=== PATIENT | female | born 1945 | race American Indian/Alaskan Native ===

== ENCOUNTER 2022-02-04 17:39 | Inpatient (IN) | payer MEDICARE, OTHER ==
[~2022-02-04] VITALS: Ht 152.4 cm; Wt 66.8 kg
[2022-02-04 19:10] LABS: BASOPHILS # (AUTO) 0.1 X10'3 (0-0.2); BASOPHILS % (AUTO) 1.1 % (0-1); EOSINOPHILS # (AUTO) 0.1 X10'3 (0-0.9); EOSINOPHILS % (AUTO) 0.9 % (0-6); HEMATOCRIT 45.2 % (35.0-45.0); HEMOGLOBIN 15.1 g/dl (12.0-16.0); LYMPHOCYTES # (AUTO) 1.7 X10'3 (1.1-4.8); LYMPHOCYTES % (AUTO) 16.6 % (21-51); MEAN CORPUSCULAR HEMOGLOBIN 32.1 PG (27.0-31.0); MEAN CORPUSCULAR HGB CONC 33.3 g/dL (33.0-36.5); MEAN CORPUSCULAR VOLUME 96.3 FL (78-98); MEAN PLATELET VOLUME 6.9 FL (7.4-10.4); MONOCYTES # (AUTO) 0.7 X10'3 (0-0.9); MONOCYTES % (AUTO) 6.5 % (2-12); NEUTROPHILS # (AUTO) 7.7 X10'3 (1.8-7.7); NEUTROPHILS % (AUTO) 74.9 % (42-75); PLATELET COUNT 310 X10'3 (140-440); RED CELL DISTRIBUTION WIDTH 14.1 % (11.5-14.5); WHITE BLOOD COUNT 10.4 X10'3 (4.5-11.0)
[2022-02-04 19:19] LABS: ALANINE AMINOTRANSFERASE 12 U/L (12-78); ALBUMIN 3.6 G/DL (3.4-5.0); ALKALINE PHOSPHATASE 99 IU/L (46-116); ANION GAP 6 (8-16); ASPARTATE AMINO TRANSFERASE 25 U/L (10-37); BILIRUBIN,TOTAL 0.6 MG/DL (0.1-1.0); BLOOD UREA NITROGEN 10 MG/DL (7-18); BUN/CREATININE RATIO 11.4 (6.6-38.0); CALCIUM 8.8 MG/DL (8.5-10.1); CHLORIDE 104 MMOL/L (99-107); CREATININE 0.88 MG/DL (0.40-0.90); GLUCOSE 123 MG/DL (70-104); LIPASE 94 U/L (73-393); POTASSIUM 3.9 MMOL/L (3.5-5.1); SODIUM 138 MMOL/L (135-145); TOTAL CARBON DIOXIDE 27.7 MMOL/L (24-32); TOTAL PROTEIN 7.1 G/DL (6.4-8.2); eGFR 62 ML/MIN
[2022-02-05] VITALS (19 sets, daily range): BP systolic 137–181; BP diastolic 61–94
[2022-02-05] MEDS ORDERED: ondansetron/PF 4mg/2ml inj IV ONE (00:55)
[2022-02-05] MEDS ORDERED: acetaminophen 325mg tablet PO ONE (01:00)
[2022-02-05] MEDS ORDERED: iohexol 300mg/ml 100ml inj. ONE (01:15)
[2022-02-05] MEDS ORDERED: normal saline 1000ML IV soln IVB ONE (01:45)
[2022-02-05] MEDS ORDERED: morphine 4 MG/ML inj SYRINge IV ONE (02:45)
[2022-02-05] MEDS ORDERED: LIDOcaine Viscous 15ml cup MM ONE (02:55)
[2022-02-05] MEDS ORDERED: bisacodyl 10mg suppository rectal RC PRN (03:30)
[2022-02-05] MEDS ORDERED: morphine 2 MG/ML inj. syringe IV PRN ×2 (03:30→14:25)
[2022-02-05] MEDS ORDERED: magnesium hydroxide 30ml (MOM) UD suspension PO PRN (03:30)
[2022-02-05] MEDS ORDERED: ondansetron/PF 4mg/2ml inj IV PRN ×2 (03:30→14:25)
[2022-02-05] MEDS ORDERED: acetaminophen 650mg rectal suppository RC PRN (03:30)
[2022-02-05] MEDS ORDERED: diphenhydrAMINE 50 mg/ml inj IV PRN (03:30)
[2022-02-05] MEDS ORDERED: HYDROcodone/acetaminophen 10/325mg tab PO PRN (03:30)
[2022-02-05] MEDS ORDERED: HYDROmorphone inj. 0.5 MG/0.5 ML DISP.SYRIN IV PRN (03:30)
[2022-02-05] MEDS ORDERED: acetaminophen 325mg tablet PO PRN (03:30)
[2022-02-05] MEDS ORDERED: diphenhydrAMINE 25mg capsule PO PRN (03:30)
[2022-02-05] MEDS ORDERED: mag hydrox/Alum hydrox/simeth 30ml oral suspension PO PRN (03:30)
[2022-02-05] MEDS ORDERED: HYDROcodone/acetaminophen 5mg/325mg tablet PO PRN (03:30)
[2022-02-05] MEDS: niCARDipine-NS 40mg/200ml IVPB 200 ML IV SCH ×2 (03:50→04:32)
[2022-02-05] MEDS: dextrose 5%-1/2 normal saline 1,000 ML IV SCH ×2 (03:55→18:00)
--- NOTE | 2022-02-05 04:32 | NUR ---
PT PLACED ONTO IN PATIENT BED
[2022-02-05 04:34] LABS: CLARITY,URINE CLEAR (Clear); COLOR,URINE YELLOW (Yellow); GLUCOSE, URINE NEGATIVE (Neg); KETONES,URINE TRACE mg/dl (Neg); LEUKOCYTE ESTERASE ,URINE NEGATIVE (Neg); NITRITES, URINE NEGATIVE (Neg); OCCULT BLOOD,URINE NEGATIVE (Neg); PROTEIN,URINE NEGATIVE (Neg); UROBILINOGEN,URINE 0.2 E.U/dL (0.2-1.0)
[2022-02-05 04:50] LABS: UA COLLECTION TYPE CLN CATCH MIDSTREAM
--- NOTE | 2022-02-05 06:43 | NUR ---
report from bettie for continuation of care. pt resting in position of comfort with no complaints. ng tube noted with med. suction.
--- NOTE | 2022-02-05 06:49 | NUR ---
stopped jud palm. pt vs 104/58 Addendum: 02/05/22 at 0649 by GASPIRIN pt ao4 claims no dizziness or sob. resp even unlabored. skinw/d/i pink.
[2022-02-05] MEDS: docusate sod 100mg capsule PO SCH ×2 (08:00→20:00)
[2022-02-05] MEDS ORDERED: hydrALAZINE 20mg/ml inj. IV PRN ×2 (08:25→14:25)
[2022-02-05] MEDS: pantoprazole 40MG/NS 100ML BAG 100 ML IV SCH (09:02)
[2022-02-05] MEDS ORDERED: amLODIPine 5mg tablet PO ONE (09:18)
[2022-02-05] MEDS: chlorthalidone 25mg tablet PO SCH (09:20)
[2022-02-05 09:26] LABS: APTT 26 SECONDS (22-32)
[2022-02-05 09:32] LABS: CREATINE KINASE 28 U/L (26-192); MAGNESIUM 1.6 MG/DL (1.5-2.4); PHOSPHORUS 3.8 MG/DL (2.3-4.5)
[2022-02-05 10:42] LABS: CHOL/HDL RATIO 3.6 (0.00-4.99); CHOLESTEROL 188 MG/DL (0-200); HDL CHOLESTEROL 52 MG/DL (35-60); LDL CHOLESTEROL 127 MG/DL (50-100); TRIGLYCERIDES 85 MG/DL (20-135)
[2022-02-05] MEDS ORDERED: BUPIVAcaine 0.5% inj/PF 30 ML ONE (12:35)
--- NOTE | 2022-02-05 13:08 | NUR ---
pt taken to or by or staff. all belongings taken by family members. pt remains ao4 with no acute signs of distress
[2022-02-05] MEDS ORDERED: sevoflurane 250ml liquid IH ONE (13:55)
[2022-02-05] MEDS ORDERED: midazolam 1 mg/ML 2ml injection ONE (14:01)
[2022-02-05] MEDS ORDERED: fentaNYL /PF 50mcg/ml 5ml ampule ONE (14:04)
[2022-02-05] MEDS ORDERED: ondansetron/PF 4mg/2ml inj ONE (14:17)
[2022-02-05] MEDS ORDERED: rocuronium 10mg/ml inj IV ONE (14:17)
[2022-02-05] MEDS ORDERED: LIDOcaine 2% (20mg/ml) 5ml vial ONE (14:17)
[2022-02-05] MEDS ORDERED: dexamethasone sod phosphate 4mg/ml inj. ONE (14:17)
[2022-02-05] MEDS ORDERED: propofol inj 20 ML IV ONE (14:17)
[2022-02-05] MEDS ORDERED: ceFAZolin 1000mg inj ONE ×2 (14:17)
[2022-02-05] MEDS ORDERED: ePHEDrine 50MG/ML INJ. ONE (14:17)
[2022-02-05] MEDS ORDERED: proCHLORperazine 10 MG/2 ml inj IV PRN (14:25)
[2022-02-05] MEDS ORDERED: morphine 4 MG/ML inj SYRINge IV PRN (14:25)
[2022-02-05] MEDS ORDERED: meperidine/PF 25mg/ml syringe IV PRN ×3 (14:25)
[2022-02-05] MEDS ORDERED: ringers solution, lacted 1,000 ML IV SCH (14:25)
[2022-02-05] MEDS ORDERED: acetaminophen 1,000mg/100ml IV 100 ML IV PRN (14:25)
[2022-02-05] MEDS ORDERED: BUPIVAcaine 0.5% inj/PF 30 ml vial IJ ONE (14:42)
[2022-02-05] MEDS ORDERED: neostigmine methylsulfate 1 MG/ML 10ml vial ONE (15:25)
[2022-02-05] MEDS ORDERED: glycopyrrolate 0.2mg/ml inj ONE (15:25)
[2022-02-05] MEDS ORDERED: BUPIVACAINE liposomal/PF 13.3 MG/ML vial IM ONE (15:32)
[2022-02-05] MEDS ORDERED: sugammadex 200mg/2ml injection IV ONE (15:49)
--- NOTE | 2022-02-05 15:56 | NUR ---
Received from OR via BED IN STABLE CONDITION , accompanied by Anesthesiologist and AIR TRAFFIC CONTROL SUPERVISOR report given by AIR TRAFFIC CONTROL SUPERVISOR AND Anesthesiolgist. Addendum: 02/05/22 at 1617 by Nevaeh Brandon RN Amended: Links added.
[2022-02-05] MEDS: labetalol 20mg/4ml (5mg/ml) syringe IV PRN ×3 (16:30→17:05)
--- NOTE | 2022-02-05 17:30 | NUR ---
received report from ta bennett in recovery
--- NOTE | 2022-02-05 17:36 | NUR ---
PATIENT DISCHARGED FROM PACU IN STABLE CONDITION AFTER REPORT GIVEN TO RN. PATIENT TRANSFERRED VIA BED TO ROOM 347B WITH ELLIOT AND JOSUÉ. Addendum: 02/05/22 at 1746 by Nevaeh Brandon RN Amended: Links added.
--- NOTE | 2022-02-05 17:38 | NUR ---
pt arrived on floor
--- NOTE | 2022-02-05 17:50 | NUR ---
pt ng tube hooked up, post opt vitals machine taking vitals and pt is alert awake and talking with daughters at bedside at this time
--- NOTE | 2022-02-05 18:30 | NUR ---
Patient in room [facility]. I have received report from ELLIOT Oconnell and had the opportunity to ask questions and assume patient care.
--- NOTE | 2022-02-05 18:34 | NUR ---
gave report to ta covarrubias
[2022-02-05] MEDS ORDERED: temazepam 15mg capsule PO PRN (21:00)
[2022-02-05] MEDS: morphine 2 MG/ML inj. syringe IV PRN (22:58)
[2022-02-06] MEDS ORDERED: NAPR-56 PO (01:57)
[2022-02-06] MEDS ORDERED: LIDO700A32 TOP (01:57)
[2022-02-06] MEDS ORDERED: LISI20TA28 PO (01:57)
[2022-02-06 02:00] VITALS: BP 168/88
[2022-02-06] MEDS: dextrose 5%-1/2 normal saline 1,000 ML IV SCH ×3 (03:18→13:35)
[2022-02-06] MEDS: morphine 2 MG/ML inj. syringe IV PRN ×2 (03:27→11:28)
--- NOTE | 2022-02-06 06:21 | NUR ---
Problems reprioritized. Patient report given, questions answered & plan of care reviewed with ELLIOT Hardin.
[2022-02-06 06:23] LABS: BASOPHILS % (AUTO) 0.1 % (0-1); EOSINOPHILS % (AUTO) 0 % (0-6); HEMATOCRIT 39.1 % (35.0-45.0); HEMOGLOBIN 13.3 g/dl (12.0-16.0); LYMPHOCYTES # (AUTO) 0.6 X10'3 (1.1-4.8); LYMPHOCYTES % (AUTO) 4.7 % (21-51); MEAN CORPUSCULAR HEMOGLOBIN 32.7 PG (27.0-31.0); MEAN CORPUSCULAR VOLUME 96.3 FL (78-98); MEAN PLATELET VOLUME 7.1 FL (7.4-10.4); MONOCYTES # (AUTO) 0.7 X10'3 (0-0.9); NEUTROPHILS # (AUTO) 12.1 X10'3 (1.8-7.7); NEUTROPHILS % (AUTO) 90.2 % (42-75); PLATELET COUNT 226 X10'3 (140-440); RED BLOOD COUNT 4.06 X10'6 (4.20-5.60); RED CELL DISTRIBUTION WIDTH 13.8 % (11.5-14.5); WHITE BLOOD COUNT 13.5 X10'3 (4.5-11.0)
--- NOTE | 2022-02-06 06:49 | NUR ---
Patient in room [facility]. I have received report from ELLIOT Crain and had the opportunity to ask questions and assume patient care.
[2022-02-06 06:55] VITALS: BP 142/76
[2022-02-06] MEDS: pantoprazole 40MG/NS 100ML BAG 100 ML IV SCH (07:48)
[2022-02-06] MEDS: docusate sod 100mg capsule PO SCH (07:49)
[2022-02-06] MEDS: chlorthalidone 25mg tablet PO SCH (07:49)
[2022-02-06] MEDS: CefTRIAXone 2gm/D5W 50ml BAG 50 ML IV SCH (07:50)
[2022-02-06 09:38] LABS: ALANINE AMINOTRANSFERASE 17 U/L (12-78); ALBUMIN 2.5 G/DL (3.4-5.0); ALBUMIN/GLOBULIN RATIO 0.8 (1.1-1.5); ALKALINE PHOSPHATASE 70 IU/L (46-116); ANION GAP 13 (8-16); ASPARTATE AMINO TRANSFERASE 27 U/L (10-37); BILIRUBIN,TOTAL 0.9 MG/DL (0.1-1.0); BLOOD UREA NITROGEN 10 MG/DL (7-18); BUN/CREATININE RATIO 12.8 (6.6-38.0); CALCIUM 8.7 MG/DL (8.5-10.1); CHLORIDE 105 MMOL/L (99-107); CREATININE 0.78 MG/DL (0.40-0.90); GLUCOSE 150 MG/DL (70-104); POTASSIUM 4.2 MMOL/L (3.5-5.1); SODIUM 139 MMOL/L (135-145); TOTAL CARBON DIOXIDE 21.3 MMOL/L (24-32); TOTAL PROTEIN 5.7 G/DL (6.4-8.2); eGFR 72 ML/MIN
[2022-02-06 12:33] VITALS: BP_SYST 129; BP_SYST 173; BP_DIAS 55; BP_DIAS 75
[2022-02-06] MEDS ORDERED: LISI30TA4 PO (12:33)
[2022-02-06] MEDS ORDERED: OMEP20CA16 PO (12:33)
[2022-02-06] MEDS ORDERED: Chloraseptic (Phenol) Spray 177ml MM PRN (13:40)
--- NOTE | 2022-02-06 15:25 | NUR ---
PAGER ID: [phone] MESSAGE: [phone]- Karina Figueroa- pt on cont pulse ox on telemonitor. do you want to continue 24hr tele or dc ?- Lashawn [id number]
[2022-02-06 18:00] VITALS: BP 169/80
--- NOTE | 2022-02-06 18:02 | NUR ---
Problems reprioritized. Patient report given, questions answered & plan of care reviewed with ELLIOT Barron.
--- NOTE | 2022-02-06 18:21 | NUR ---
Patient in room [facility]. I have received report from Lashawn and had the opportunity to ask questions and assume patient care.
--- NOTE | 2022-02-06 20:42 | NUR ---
Patient's NG tube has been removed. Patient tolerated well. On clear liquids per MD.
[2022-02-06 22:00] VITALS: BP 172/67
[2022-02-07] MEDS: dextrose 5%-1/2 normal saline 1,000 ML IV SCH ×2 (01:36→15:30)
[2022-02-07 06:00] VITALS: BP 164/66
--- NOTE | 2022-02-07 06:05 | NUR ---
REVIEWED SENIOR CYBER INTELLIGENCE ANALYST ASSIGNMENTS AND IN AGREEMENT.
--- NOTE | 2022-02-07 06:21 | NUR ---
Problems reprioritized. Patient report given, questions answered & plan of care reviewed with
--- NOTE | 2022-02-07 06:25 | NUR ---
Patient in room [facility]. I have received report from Teresa RHODES and had the opportunity to ask questions and assume patient care.
[2022-02-07 07:17] LABS: BASOPHILS % (AUTO) 0.4 % (0-1); EOSINOPHILS # (AUTO) 0.1 X10'3 (0-0.9); EOSINOPHILS % (AUTO) 0.7 % (0-6); HEMATOCRIT 38.1 % (35.0-45.0); HEMOGLOBIN 12.9 g/dl (12.0-16.0); LYMPHOCYTES # (AUTO) 1.6 X10'3 (1.1-4.8); LYMPHOCYTES % (AUTO) 16.5 % (21-51); MEAN CORPUSCULAR HEMOGLOBIN 32.5 PG (27.0-31.0); MEAN CORPUSCULAR HGB CONC 33.8 g/dL (33.0-36.5); MEAN CORPUSCULAR VOLUME 96.3 FL (78-98); MEAN PLATELET VOLUME 7.2 FL (7.4-10.4); MONOCYTES # (AUTO) 0.8 X10'3 (0-0.9); MONOCYTES % (AUTO) 8.6 % (2-12); NEUTROPHILS # (AUTO) 7.2 X10'3 (1.8-7.7); NEUTROPHILS % (AUTO) 73.8 % (42-75); PLATELET COUNT 213 X10'3 (140-440); RED BLOOD COUNT 3.96 X10'6 (4.20-5.60); RED CELL DISTRIBUTION WIDTH 13.9 % (11.5-14.5); WHITE BLOOD COUNT 9.7 X10'3 (4.5-11.0)
[2022-02-07 07:35] LABS: ALANINE AMINOTRANSFERASE 21 U/L (12-78); ALBUMIN 2.4 G/DL (3.4-5.0); ALBUMIN/GLOBULIN RATIO 0.8 (1.1-1.5); ALKALINE PHOSPHATASE 70 IU/L (46-116); ANION GAP 7 (8-16); ASPARTATE AMINO TRANSFERASE 34 U/L (10-37); BILIRUBIN,TOTAL 0.8 MG/DL (0.1-1.0); BLOOD UREA NITROGEN 7 MG/DL (7-18); BUN/CREATININE RATIO 10.1 (6.6-38.0); CALCIUM 8.1 MG/DL (8.5-10.1); CHLORIDE 104 MMOL/L (99-107); CREATININE 0.69 MG/DL (0.40-0.90); GLUCOSE 116 MG/DL (70-104); POTASSIUM 3.8 MMOL/L (3.5-5.1); SODIUM 140 MMOL/L (135-145); TOTAL CARBON DIOXIDE 28.6 MMOL/L (24-32); TOTAL PROTEIN 5.4 G/DL (6.4-8.2); eGFR 82 ML/MIN
[2022-02-07] MEDS: pantoprazole 40MG/NS 100ML BAG 100 ML IV SCH (07:47)
[2022-02-07] MEDS: CefTRIAXone 2gm/D5W 50ml BAG 50 ML IV SCH (07:50)
[2022-02-07] MEDS: chlorthalidone 25mg tablet PO SCH (07:59)
[2022-02-07] MEDS: lisinopril 10 MG tablet PO SCH (07:59)
[2022-02-07] MEDS: LIDOcaine 5% patch TP SCH (07:59)
[2022-02-07] MEDS: pantoprazole 40mg Tablet.DR PO SCH (07:59)
[2022-02-07 10:00] VITALS: BP 173/72
--- NOTE | 2022-02-07 17:26 | NUR ---
COFFEE WEIGHER documentation: I have reviewed and agree with all interventions, assessments performed and documented by Vania Zacarias LVN.
[2022-02-07 18:00] VITALS: BP 166/67
--- NOTE | 2022-02-07 18:12 | NUR ---
Problems reprioritized. Patient report given, questions answered & plan of care reviewed with Teresa RHODES.
--- NOTE | 2022-02-07 18:20 | NUR ---
Patient in room [facility]. I have received report from Paula and had the opportunity to ask questions and assume patient care.
[2022-02-07 22:00] VITALS: BP 115/69
[2022-02-07] MEDS: acetaminophen 325mg tablet PO PRN (22:10)
[2022-02-08] MEDS: dextrose 5%-1/2 normal saline 1,000 ML IV SCH (01:30)
--- NOTE | 2022-02-08 04:17 | NUR ---
REVIEWED PAINT PROCESS ENGINEER ASSESSMENT AND IN AGREEMENT.
[2022-02-08 06:00] VITALS: BP 164/73
[2022-02-08 06:48] LABS: BASOPHILS % (AUTO) 0.7 % (0-1); EOSINOPHILS # (AUTO) 0.2 X10'3 (0-0.9); EOSINOPHILS % (AUTO) 2.1 % (0-6); HEMATOCRIT 37.9 % (35.0-45.0); HEMOGLOBIN 13.1 g/dl (12.0-16.0); LYMPHOCYTES # (AUTO) 1.6 X10'3 (1.1-4.8); LYMPHOCYTES % (AUTO) 21.9 % (21-51); MEAN CORPUSCULAR HEMOGLOBIN 32.8 PG (27.0-31.0); MEAN CORPUSCULAR HGB CONC 34.4 g/dL (33.0-36.5); MEAN CORPUSCULAR VOLUME 95.3 FL (78-98); MEAN PLATELET VOLUME 6.7 FL (7.4-10.4); MONOCYTES # (AUTO) 0.7 X10'3 (0-0.9); MONOCYTES % (AUTO) 9.7 % (2-12); NEUTROPHILS # (AUTO) 4.7 X10'3 (1.8-7.7); NEUTROPHILS % (AUTO) 65.6 % (42-75); PLATELET COUNT 222 X10'3 (140-440); RED BLOOD COUNT 3.98 X10'6 (4.20-5.60); RED CELL DISTRIBUTION WIDTH 13.4 % (11.5-14.5); WHITE BLOOD COUNT 7.2 X10'3 (4.5-11.0)
[2022-02-08 07:02] LABS: ALANINE AMINOTRANSFERASE 22 U/L (12-78); ALBUMIN 2.5 G/DL (3.4-5.0); ALBUMIN/GLOBULIN RATIO 0.8 (1.1-1.5); ALKALINE PHOSPHATASE 79 IU/L (46-116); ANION GAP 5 (8-16); ASPARTATE AMINO TRANSFERASE 26 U/L (10-37); BLOOD UREA NITROGEN 7 MG/DL (7-18); BUN/CREATININE RATIO 8.6 (6.6-38.0); CALCIUM 8.9 MG/DL (8.5-10.1); CHLORIDE 102 MMOL/L (99-107); CREATININE 0.81 MG/DL (0.40-0.90); GLUCOSE 108 MG/DL (70-104); POTASSIUM 3.9 MMOL/L (3.5-5.1); SODIUM 138 MMOL/L (135-145); TOTAL CARBON DIOXIDE 30.7 MMOL/L (24-32); TOTAL PROTEIN 5.8 G/DL (6.4-8.2); eGFR 69 ML/MIN
[2022-02-08] MEDS: pantoprazole 40MG/NS 100ML BAG 100 ML IV SCH (07:08)
[2022-02-08] MEDS: chlorthalidone 25mg tablet PO SCH (07:13)
[2022-02-08] MEDS: CefTRIAXone 2gm/D5W 50ml BAG 50 ML IV SCH (07:13)
[2022-02-08] MEDS: lisinopril 10 MG tablet PO SCH (07:14)
[2022-02-08] MEDS: pantoprazole 40mg Tablet.DR PO SCH (07:14)
[2022-02-08] MEDS: LIDOcaine 5% patch TP SCH (07:19)
[2022-02-08 10:00] VITALS: BP 178/80
[2022-02-08 18:00] VITALS: BP 177/83
--- NOTE | 2022-02-08 18:24 | NUR ---
Problems reprioritized. Patient report given, questions answered & plan of care reviewed with ELLIOT Gerardo.
--- NOTE | 2022-02-08 18:40 | NUR ---
Patient in room [facility]. I have received report from Cristal ZARATE and had the opportunity to ask questions and assume patient care.
[2022-02-08 19:50] VITALS: BP 150/78
[2022-02-08 22:00] VITALS: BP 154/72
[2022-02-08] MEDS: acetaminophen 325mg tablet PO PRN (23:17)
[2022-02-09 06:00] VITALS: BP 151/64
--- NOTE | 2022-02-09 06:25 | NUR ---
Problems reprioritized. Patient report given, questions answered & plan of care reviewed with Cristal ZARATE.
[2022-02-09 06:45] LABS: BASOPHILS # (AUTO) 0.1 X10'3 (0-0.2); BASOPHILS % (AUTO) 0.7 % (0-1); EOSINOPHILS # (AUTO) 0.2 X10'3 (0-0.9); EOSINOPHILS % (AUTO) 2.1 % (0-6); HEMATOCRIT 40.6 % (35.0-45.0); HEMOGLOBIN 14.1 g/dl (12.0-16.0); LYMPHOCYTES # (AUTO) 1.6 X10'3 (1.1-4.8); LYMPHOCYTES % (AUTO) 20.3 % (21-51); MEAN CORPUSCULAR HEMOGLOBIN 32.7 PG (27.0-31.0); MEAN CORPUSCULAR HGB CONC 34.6 g/dL (33.0-36.5); MEAN CORPUSCULAR VOLUME 94.4 FL (78-98); MEAN PLATELET VOLUME 7.1 FL (7.4-10.4); MONOCYTES # (AUTO) 0.7 X10'3 (0-0.9); MONOCYTES % (AUTO) 9.5 % (2-12); NEUTROPHILS # (AUTO) 5.2 X10'3 (1.8-7.7); NEUTROPHILS % (AUTO) 67.4 % (42-75); PLATELET COUNT 255 X10'3 (140-440); RED CELL DISTRIBUTION WIDTH 13.9 % (11.5-14.5); WHITE BLOOD COUNT 7.8 X10'3 (4.5-11.0)
--- NOTE | 2022-02-09 06:49 | NUR ---
Patient in room [facility]. I have received report from ELLIOT Gerardo and had the opportunity to ask questions and assume patient care.
[2022-02-09 07:11] LABS: ALANINE AMINOTRANSFERASE 21 U/L (12-78); ALBUMIN 2.6 G/DL (3.4-5.0); ALBUMIN/GLOBULIN RATIO 0.7 (1.1-1.5); ALKALINE PHOSPHATASE 90 IU/L (46-116); ANION GAP 9 (8-16); ASPARTATE AMINO TRANSFERASE 22 U/L (10-37); BILIRUBIN,TOTAL 0.9 MG/DL (0.1-1.0); BLOOD UREA NITROGEN 10 MG/DL (7-18); BUN/CREATININE RATIO 12.7 (6.6-38.0); CALCIUM 8.7 MG/DL (8.5-10.1); CHLORIDE 97 MMOL/L (99-107); CREATININE 0.79 MG/DL (0.40-0.90); GLUCOSE 103 MG/DL (70-104); POTASSIUM 3.4 MMOL/L (3.5-5.1); SODIUM 136 MMOL/L (135-145); TOTAL CARBON DIOXIDE 30.5 MMOL/L (24-32); TOTAL PROTEIN 6.1 G/DL (6.4-8.2); eGFR 71 ML/MIN
[2022-02-09] MEDS: pantoprazole 40mg Tablet.DR PO SCH (08:13)
[2022-02-09] MEDS: chlorthalidone 25mg tablet PO SCH (08:13)
[2022-02-09] MEDS: lisinopril 10 MG tablet PO SCH (08:14)
[2022-02-09] MEDS: LIDOcaine 5% patch TP SCH (08:15)
[2022-02-09 10:00] VITALS: BP 149/74
[2022-02-09] MEDS ORDERED: AMLO5TAB16 PO (11:46)
[2022-02-09] MEDS ORDERED: HYDR-3965 PO (11:46)
[2022-02-09] MEDS ORDERED: CHLO25TA11 PO (11:46)
--- NOTE | 2022-02-09 13:58 | NUR ---
Patient was discharged at 1300 with instructions and verbalizing understanding of instructions, in wheelchair accompanied by nursing staff going home via private vehicle. All lines and tubes including PIV with cannula intact have been removed. Education about the new medication has been provided at bedside and all questions have been answered. patient will call Friday to make an appointment with Dr. Hurst for staple removal. Patient is stable and appropriate for discharge.
== END 2022-02-09 13:25 | disposition home health service (06) | DRG 351 ==
LOC: ER 17:40 → ED HOLD 02-05 03:39 → SUR 3N 02-05 17:42
PROVIDERS: ADMIT Family Medicine; ATTEND Family Medicine
PROC: 3E0T3BZ Introduction of Anesthetic Agent into Peripheral Nerves and Plexi, Percutaneous Approach (ICD-10-PCS; 2022-02-05)
PROC: 3E0T33Z Introduction of Anti-inflammatory into Peripheral Nerves and Plexi, Percutaneous Approach (ICD-10-PCS; 2022-02-05)
PROC: 0D9670Z Drainage of Stomach with Drainage Device, Via Natural or Artificial Opening (ICD-10-PCS; 2022-02-05)
PROC: BW211ZZ Computerized Tomography (CT Scan) of Abdomen and Pelvis using Low Osmolar Contrast (ICD-10-PCS; 2022-02-05)
PROC: 0YQ50ZZ Repair Right Inguinal Region, Open Approach (ICD-10-PCS; principal; 2022-02-05 13:55)
DX: K40.30 Unilateral inguinal hernia, with obstruction, without gangrene, not specified as recurrent (principal); I16.1 Hypertensive emergency; K56.609 Unspecified intestinal obstruction, unspecified as to partial versus complete obstruction; G89.4 Chronic pain syndrome; I10 Essential (primary) hypertension; Z20.822 Contact with and (suspected) exposure to COVID-19; M47.9 Spondylosis, unspecified; K44.9 Diaphragmatic hernia without obstruction or gangrene; M54.9 Dorsalgia, unspecified; K57.90 Diverticulosis of intestine, part unspecified, without perforation or abscess without bleeding; L40.9 Psoriasis, unspecified; Z88.0 Allergy status to penicillin; Z88.2 Allergy status to sulfonamides; Z90.49 Acquired absence of other specified parts of digestive tract; Z88.1 Allergy status to other antibiotic agents
CPT/HCPCS: 36415; 74177; 80053; 80061; 81003; 82550; 83036; 83690; 83735; 83880; 84100; 84145; 84443; 85025; 85610; 85730; 87070; 87075; 87102; 87811; 97116; 97161; 97530; 99285; A4215; A4615; A4618; A6258; A7000; C9113; C9290; G0378; J0690; J0696; J1100; J2250; J2270; J2405; J2704; J2710; J3010; J3490; J7030; J7042; J7120; Q9967; S0020